=== PATIENT | female | born 1980 | race Hispanic/Latino ===

== ENCOUNTER 2023-01-11 17:46 | Emergency (ER) | payer SELFPAY ==
[~2023-01-11] VITALS: Ht 160 cm; Wt 65.8 kg
[2023-01-11 18:10] VITALS: O2SAT 99
== END 2023-01-11 20:07 | disposition home or self-care (01) ==
LOC: ER 18:02
DX: M79.661 Pain in right lower leg (principal); Z98.890 Other specified postprocedural states
CPT/HCPCS: 93970; 99283